=== PATIENT | male | born 1955 | race Caucasian/White ===

== ENCOUNTER 2023-01-10 11:10 | Day surgery (SDC) | payer MEDICARE, OTHER ==
[~2023-01-10] VITALS: Ht 175.3 cm; Wt 131.8 kg
[~2023-01-10 11:10] MED LIST: LISINOPRIL-HCT1 EAC2 PO; METFORMIN HCL500 MG PO; NEURONTIN600 MG PO; OMEPRAZOLE20 MG PO; SOLIQUA 100 UNIT3 ML SUB-Q; TOPROL XL200 MG PO
[2023-01-10 11:24] VITALS: BP 139/79
--- NOTE | 2023-01-10 12:21 | NUR ---
HOMOGENIZER OPERATOR AP IN TO TALK WITH PT AND DO AX BLOCK. TOLERATED WELL.
[2023-01-10] MEDS ORDERED: DICLOFENAC SODI75 MG PO (13:43)
[2023-01-10] MEDS ORDERED: HYDROCODON-ACE1 EA11 PO (13:44)
--- NOTE | 2023-01-10 14:12 | NUR ---
01/10/23 1412 Anjelica Bird 1347 PT TO PACU FROM OR, UNRESPONSIVE. DRSG TO L HAND CDI. ICE APPLIED. RESPIRATIONS EVEN AND UNLABORED. ANESTHESIA AT BEDSIDE AND AWARE OF BP. 1348 DR PABLO AT BEDSIDE TO CHECK ON PT 1354 CBG 210 1403 ORAL AIRWAY DC'D AND PATIENT AWAKE. CONVERSING APPROPRIATELY AND ORIENTED. DENIES PAIN. ON ROOM AIR WITH SATS 96.
[2023-01-10 14:30] VITALS: BP 207/89
[2023-01-10 15:29] VITALS: BP 127/60
--- NOTE | 2023-01-10 16:17 | NUR ---
1540 DRESSED AND READY TO GO HOME. CARE [facility]IDE CALLED. TOOK TO LOBBY TAXI 35 MIN WITH PT.
--- NOTE | 2023-01-10 16:19 | NUR ---
1540 HAS AMB IN HALLWAY AND TO BR VOIDS QS.
--- NOTE | 2023-01-12 11:41 | OR ---
[facility] [address] [place], [place] [address] Signed DATE OF OPERATION: 01/10/2023 SURGEON: Jossie Cox MD PREOPERATIVE DIAGNOSIS: CMC arthrosis, left thumb. POSTOPERATIVE DIAGNOSIS: CMC arthrosis, left thumb. PROCEDURE PERFORMED: Left thumb LRTI. WATER RESOURCE ENGINEER: Nupur Hilton PA-C. Nupur was present and critical for all portions of the procedure. ANESTHESIA: General. BLOOD LOSS: Minimal. TOURNIQUET TIME: 45 minutes. IMPLANTS: Arthrex 4 mm interference screw. 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 He had undergone nonoperative treatment without substantial relief. Risks, benefits, and alternatives of surgery were discussed with him. He elected to proceed. DESCRIPTION OF PROCEDURE: Once consent was obtained, he was taken to the operating room. After adequate anesthesia, he was placed on the operating room table and all downside pressure points were well padded. The arm was placed in a well-padded proximal arm tourniquet. The arm was then prepped and draped in the standard sterile fashion and exsanguinated using Electronically Signed By: JOSSIE COX MD 01/12/23 1141 PATIENT NAME: LAURA ARECHIGA OPERATIVE REPORT DATE OF : 57 REPORT #: [id number] PHYSICIAN: JOSSIE COX MD PCP: RITCHIE MEJÍA MD REPORT IS CONFIDENTIAL AND NOT TO BE RELEASED WITHOUT AUTHORIZATION [facility] [address] [place], [place] [address] Signed Esmarch bandage. Tourniquet inflated to 200 mmHg. Standard curved volar incision along the glabrous line was taken through the skin and subcutaneous tissue. The capsule was then incised and elevated off the trapezium. The ligamentous attachments to the trapezium were released circumferentially. We did locate the FCR and protect the FCR. Using an osteotome, the trapezium was then split in two pieces and removed piecemeal using a rongeur. All bony fragments were removed. Once this was accomplished, a guide pin for the Arthrex LRTI set was placed obliquely across the base of the 1st metacarpal from the volar radial side to the dorsal ulnar side. This was then over-reamed using a 4 mm reamer. The FCR was then harvested 6 cm proximally brought back down into the wrist. The tendon was then split in two and one-half was placed through the drill hole and brought out the volar side. Then using push-pull method, this was tightened against the base of the 2nd metacarpal. The interference screw was then placed in the drill hole. The 2nd limb was then brought through the 1st limb in a Pulvertaft weave to tighten the sling. This was then sewn using 2-0 FiberWire. The anchovy was then made and stuffed into the defect. The wound was copiously irrigated with normal saline. The volar capsule was closed with 2-0 Monocryl, subcutaneous tissue with 2-0 Monocryl and the skin with 3-0 Stratafix. The wound was sealed with LiquiBand and Steri-Strips were applied. The wound was dressed with sterile gauze and a thumb spica splint. He tolerated the procedure well. All sponge, needle, and instrument counts were correct. Jossie Cox MD BA/REDD /[id number] Copies: ~ Electronically Signed By: JOSSIE COX MD 01/12/23 1141 PATIENT NAME: LAURA ARECHIGA OPERATIVE REPORT DATE OF : 57 REPORT #: [id number] PHYSICIAN: JOSSIE COX MD PCP: RITCHIE MEJÍA MD REPORT IS CONFIDENTIAL AND NOT TO BE RELEASED WITHOUT AUTHORIZATION
== END 2023-01-10 15:40 | disposition home or self-care (01) ==
LOC: DS 11:10
PROVIDERS: ATTEND Specialist
PROC: 0LX80ZZ Transfer Left Hand Tendon, Open Approach (ICD-10-PCS; principal; 2023-01-10 13:45)
DX: M18.12 Unilateral primary osteoarthritis of first carpometacarpal joint, left hand (principal); I10 Essential (primary) hypertension; E11.9 Type 2 diabetes mellitus without complications; F90.9 Attention-deficit hyperactivity disorder, unspecified type; F32.9 Major depressive disorder, single episode, unspecified; Z88.0 Allergy status to penicillin; Z88.2 Allergy status to sulfonamides
CPT/HCPCS: 01830; 64417; 76942; C1713; J0690; J1100; J1160; J1885; J2001; J2250; J2405; J2704; J2765; J2795; J3010; J7121